=== PATIENT | male | born 1960 | race Hispanic/Latino ===

== ENCOUNTER 2017-01-08 11:50 | Outpatient (CLI) | payer BC ==
--- NOTE | 2017-01-08 15:05 | XRay Report ---
Cervical spine 3 views: History: Neck pain. Findings: Normal height of vertebral bodies. Decrease in height of the C3-C4, C5-C6 and C6-C7. Sclerotic articular surfaces with osteophyte suggestive of severe cervical spondylosis. No fracture. Normal prevertebral soft tissue. Impression: Severe spondylosis cervical spine.
== END 2017-01-08 11:51 | disposition home or self-care (01) ==
LOC: SPVIMAG 11:50
PROVIDERS: ATTEND Internal Medicine
DX: M47.892 Other spondylosis, cervical region (principal); M25.78 Osteophyte, vertebrae
CPT/HCPCS: 72040